=== PATIENT | male | born 1970 | race Caucasian/White ===

== ENCOUNTER 2016-05-09 09:03 | Outpatient (RCR) | payer OTHER ==
--- OUTSIDE RECORDS SUMMARY | 2016-04-03 08:28 | XMS REPORT ---
Author Author [facility] Organization [facility] Address [address] [place], [place] [id number] Care Team Providers Care Circus Trainer Name Role Phone PCP Unavailable Allergies and Adverse Reactions Not available. Plan of Treatment Not available. Medications Not available. Problem List Not available. Vital Signs Date Time BP-Sys(mm[Hg] BP-Mary(mm[Hg]) HR(bpm) RR(rpm) Temp WT HT HC BMI BSA BMI Percentile O2 Sat(%) 09/27/2014 3:17:00 PM 130 mmHg 80 mmHg 94 bpm 18 rpm 98.4 F 198 lbs 68 in 30.11 kg/m2 2.08 m2 98 % Social History Not available. History of Procedures Not available. Results Summary Not available. History Of Immunizations Not available. History of Past Illness Name Date of Onset Comments Elevated blood pressure Sep 27 2014 3:18PM Payers Insurance Name Company Name Plan Name Plan Number Policy Number Policy Group Number Start Date [facility] [id number] N/A History of Encounters Visit Date Visit Type Provider 09/27/2014 Office visit JENNA CARRILLO
[~2016-05-09 09:03] MED LIST: HYDR-2997 PO; NAPR-243 PO
== END 2016-06-07 09:26 | disposition home or self-care (01) ==
PROVIDERS: ATTEND Orthopaedic Surgery
DX: Z98.890 Other specified postprocedural states (principal)

== ENCOUNTER → 2017-06-20 | Outpatient (CLI) | payer BC ==
--- NOTE | 2017-06-20 08:51 | Diagnostic Imaging Report ---
PROCEDURE: MR imaging cervical spine without contrast. TECHNIQUE: Multiplanar, multisequence MR imaging of the cervical spine was performed without contrast. INDICATION: Cervical spine pain as well as right shoulder pain. No prior studies are available for comparison. Curvature and alignment of the cervical spine is normal. Vertebral body marrow signal is unremarkable. There is desiccation of the C4-C5 disc compatible with degenerative disc disease. Cervical cord demonstrates normal homogeneous signal intensity and normal morphology. C2-C3: No central canal or neural foraminal stenosis is detected. C3-C4: Endplate osteophytes flatten the ventral thecal sac. There is mild uncovertebral joint degenerative change bilaterally. This appears to result in moderate right neural frontal stenosis. Left neural foramen is patent. C4-C5: There is a prominent right paramidline disc protrusion, indenting the ventral thecal sac and producing slight indentation upon the ventral spinal cord. Endplate osteophytes also produce moderate bilateral neuroforaminal stenosis. C5-C6: There appears to be extruded disc on the right posterior lateral region. This extruded disc does extend cephalad along the posterior aspect of the C5 vertebral body and caudally along the posterior aspect of the C6 vertebral body. Disc material does produce significant narrowing of the right lateral recess and right neural foramen. Central canal is patent. Uncovertebral joint degenerative change on the left side does create moderate left-sided neural foraminal stenosis as well. C6-C7: Unremarkable. C7-T1: Unremarkable. IMPRESSION: 1. Right para-midline disc protrusion C4-C5 level indenting the ventral thecal sac and spinal cord producing mild central canal narrowing. 2. Extruded disc on the right likely arising from the C5-C6 disc producing significant right lateral recess stenosis. There is multilevel neural foraminal stenosis described level by level above. No significant central canal stenosis is seen. Dictated by: Dictated on workstation # [id number]
== END ==
LOC: RAD 07:33
PROVIDERS: ATTEND Family Medicine
DX: M48.02 Spinal stenosis, cervical region (principal); M99.71 Connective tissue and disc stenosis of intervertebral foramina of cervical region; M47.812 Spondylosis without myelopathy or radiculopathy, cervical region; M50.221 Other cervical disc displacement at C4-C5 level
CPT/HCPCS: 72141

== ENCOUNTER 2019-10-31 11:05 | Emergency (ER) | payer BC ==
[~2019-10-31] VITALS: Ht 172 cm; Wt 81.6 kg
[2019-10-31] MEDS ORDERED: diphenhydrAMINE 50 MG/ML INJ (BENADRYL) ONE (11:06)
[2019-10-31] MEDS ORDERED: EPINEPHrine INJECTION 1 MG/ML AMP ONE (11:06)
[2019-10-31] MEDS ORDERED: methylPREDNISolone 125 MG (Solu-MEDROL) VIAL ONE (11:06)
[2019-10-31] MEDS ORDERED: FAMOTIDINE 20MG/2ML IV (PEPCID) ONE (11:07)
--- NOTE | 2019-10-31 11:14 | ED General ---
General Stated Complaint: ALLERGIC REACTION Source of Information: Patient Exam Limitations: No Limitations History of Present Illness Date Seen by Provider: Oct 31, 2019 Time Seen by Provider: 11:11 Initial Comments To ER with reports of allergic reaction that began a few minutes ago. He was walking across the [employer] management [employer] and felt a burning sensation on both of his lower legs. Unsure if he was stung by an insect or if this was related to a plant. He had a similar episode about 20 years ago but cannot recall what the allergen was. He took 3 Benadryl at home denies improvement, feels like his airway is closing. Timing/Duration: 1/2 Hour Severity: Moderate, Severe Allergies and Home Medications Allergies Coded Allergies: No Known Drug Allergies (Unverified , 11/28/10) Home Medications Epinephrine 0.3 Mg/0.3 Ml Auto.injct, 0.3 MG IJ PRN PRN for anaphylaxis Prescribed by: JAQUELINE SCHOFIELD on 10/31/19 1434 Hydrocodone Bit/Acetaminophen 1 Tab Tablet, 1-2 EACH PO Q 4 - 6 HRS PRN Prescribed by: YVONNE MORRISSEY on 08/08/12 1804 Naproxen 500 Mg Tablet, 1 EACH PO BID - TID PRN Prescribed by: YVONNE MORRISSEY on 08/08/12 1804 Prednisone 20 Mg Tab, 40 MG PO DAILY Prescribed by: JAQUELINE SCHOFIELD on 10/31/19 1434 Patient Home Medication List Home Medication List Reviewed: Yes Review of Systems Review of Systems Constitutional: see HPI EENTM: see HPI, throat swelling Respiratory: see HPI, short of breath Cardiovascular: no symptoms reported Gastrointestinal: No abdominal pain, No diarrhea, No nausea, No vomiting Genitourinary: no symptoms reported Musculoskeletal: no symptoms reported Skin: see HPI, rash Psychiatric/Neurological: No Symptoms Reported Hematologic/Lymphatic: No Symptoms Reported Immunological/Allergic: no symptoms reported Past [id number]-Zverti Hx Patient Social History Recent Foreign Travel: No Contact w/Someone Who Travel: No Physical Exam Vital Signs Vital Signs - First Documented 10/31/19 11:05 Temp 36.9 Pulse 140 Resp 25 B/P (MAP) 137/82 (100) Pulse Ox 97 O2 Delivery Room Air Capillary Refill : Height, Weight, BMI Height: '" Weight: lbs. oz. kg; BMI Method: General Appearance: WD/WN, Moderate Distress (heart rate 140s. Anxious appearing. Wheals and erythema to bilateral lower extremities. There is no visualized airway swelling, no stridor. Lungs are clear without wheezing) Eyes: Bilateral Eye Normal Inspection, Bilateral Eye PERRL, Bilateral Eye EOMI Neck: Full Range of Motion, Normal Inspection Respiratory: Normal Breath Sounds, No Accessory Muscle Use, No Respiratory Distress Cardiovascular: Normal Peripheral Pulses, Tachycardia Gastrointestinal: Non Tender, Soft Extremity: Normal Capillary Refill, Normal Inspection Neurologic/Psychiatric: Alert, Oriented x3 Skin: Normal Color, Warm/Dry, Rash Progress/Results/Core Measures Suspected Sepsis SIRS Temperature: Pulse: Respiratory Rate: Blood Pressure / Mean: Results/Orders My Orders Orders - JAQUELINE SCHOFIELD APRN Lorazepam Injection (Ativan Injection) (10/31/19 11:15) Epinephrine 1 Mg Injection (Adrenalin I (10/31/19 11:15) Methylprednisolone Sod Succ (Solu-Medrol (10/31/19 11:15) Famotidine Injection (Pepcid Injection) (10/31/19 11:15) Diphenhydramine Injection (Benadryl Inje (10/31/19 11:15) Ns Iv 1000 Ml (Sodium Chloride 0.9%) (10/31/19 11:15) Ondansetron Injection (Zofran Injectio (10/31/19 11:30) Epinephrine 1 Mg Injection (Adrenalin I (10/31/19 13:00) Medications Given in ED Vital Signs/I&O Capillary Refill : Departure Communication (Admissions) 1123-Zofran ordered after pt now c/o nausea. BP 140/91. HR down to 117. 1211-HR down to 90s, BP 130/80s, hives have resolved, resting comfortably. 1300-Pt had a recurrence of lip swelling and hives to torso. Repeat dose of IM epi 0.3mg x1 given. 1430-Doing well, minimal hives to torso, lip swelling resolved. Will dc with rx for epipen, prednisone Impression Primary Impression: Anaphylaxis Qualified Codes: T78.2XXA - Anaphylactic shock, unspecified, initial encou nter Disposition: 01 HOME, SELF-CARE Condition: Improved Departure-Patient Inst. Decision time for Depature: 14:32 Referrals: RADHA TRAYLOR DO (PCP/Family) Primary Care Physician Patient Instructions: Anaphylaxis Add. Discharge Instructions: 1. It would be a Good idea to continue to take one to 2 Benadryl every 6 hours until tomorrow morning. Also taking Pepcid (commonly used for stomach acid also has a histamine blocking effect) 1 tablet twice a day for the next 2 days would be helpful. Return to ER for any worsening or other concerns. Take the steroids for 2 days as directed. I did prescribe an EpiPen as well, if you should ever need to use this do not hesitate to use it for you should present to the emergency room as soon as possible after using it. Scripts Epinephrine (Epipen 2-Geronimo) 0.3 Mg/0.3 Ml Auto.injct 0.3 MG IJ PRN PRN for anaphylaxis, #1 ML Prov: JAQUELINE SCHOFIELD APRN 10/31/19 Prednisone (Prednisone) 20 Mg Tab 40 MG PO DAILY, #4 TAB 0 Refills Prov: JAQUELINE SCHOFIELD APRN 10/31/19 JAQUELINE SCHOFIELD APRN Oct 31, 2019 11:14
[2019-10-31] MEDS ORDERED: LORazepam INJ 2 MG/ML (ATIVAN) VIAL IVP PRN (11:15)
[2019-10-31] MEDS ORDERED: FAMOTIDINE 20MG/2ML IV (PEPCID) IVP ONE (11:15)
[2019-10-31] MEDS ORDERED: methylPREDNISolone 125 MG (Solu-MEDROL) VIAL IVP ONE (11:15)
[2019-10-31] MEDS ORDERED: NS IV 1000 ML 1,000 ML IV SCH (11:15)
[2019-10-31] MEDS ORDERED: diphenhydrAMINE 50 MG/ML INJ (BENADRYL) IVP ONE (11:15)
[2019-10-31] MEDS ORDERED: EPINEPHrine INJECTION 1 MG/ML AMP IM ONE ×3 (11:15→13:00)
[2019-10-31] MEDS ORDERED: ONDANSETRON 4 MG/2 ML (SDV) Z0FRAN IVP ONE (11:30)
--- NOTE | 2019-10-31 11:30 | NUR ---
Pt reports feeling as if symptoms are resolving at this time.
--- NOTE | 2019-10-31 12:30 | NUR ---
Pt reports feeling as if lips are swelling again. Itching has returned and hives on abdomen. Renaldo Curtis notified.
--- NOTE | 2019-10-31 13:32 | NUR ---
Due to recurrence of symptoms, Renaldo, would like to monitor until approximately 1500.
[2019-10-31] MEDS ORDERED: EPIN0.3P3 IJ (14:34)
[2019-10-31] MEDS ORDERED: PRD20T PO (14:34)
--- NOTE | 2019-10-31 14:43 | NUR ---
Pt resting comfortably in bed at this time. Pt denies needs.
[2019-10-31 14:50] VITALS: BP 120/78
== END 2019-10-31 14:54 | disposition home or self-care (01) ==
LOC: EDUNIT# 11:05 → ER 11:07
DX: T78.2XXA Anaphylactic shock, unspecified, initial encounter (principal)

== ENCOUNTER → 2020-03-07 | Outpatient (CLI) | payer BC ==
[~2020-03-07] MED LIST changes: +EPIN0.3P3 IJ; +PRD20T PO
== END ==
LOC: LABNPT 06:05
PROVIDERS: ATTEND Orthopaedic Surgery
DX: Z01.812 Encounter for preprocedural laboratory examination (principal); Z53.9 Procedure and treatment not carried out, unspecified reason

== ENCOUNTER → 2020-03-14 | Outpatient (CLI) | payer BC | LOC: LABNPT 06:11 | PROVIDERS: ATTEND Orthopaedic Surgery | DX: Z53.9 Procedure and treatment not carried out, unspecified reason (principal) ==

== ENCOUNTER → 2021-01-30 | Outpatient (CLI) | payer BC | LOC: LABNPT 06:11 | PROVIDERS: ATTEND Orthopaedic Surgery | DX: Z01.812 Encounter for preprocedural laboratory examination (principal); U07.1 COVID-19 | CPT/HCPCS: 87635 ==